=== PATIENT | female | born 1965 | race Caucasian/White ===

== ENCOUNTER 2025-09-27 17:48 | Emergency (ER) | payer MEDICAID ==
[~2025-09-27] VITALS: Ht 149.9 cm; Wt 55.0 kg
[2025-09-27 18:15] VITALS: TEMP 36.9; O2SAT 98
[2025-09-27 19:27] LABS: BASOPHILS % 1.0 % (0.0-2.0); EOSINOPHILS % 3.5 % (0.0-5.0); HEMATOCRIT. 36.6 % (36.0-48.0); HEMOGLOBIN. 12.2 g/dL (12.0-16.0); LYMPHOCYTES % 44.8 % (20.0-50.0); MEAN PLATELET VOLUME 8.0 fl (7.4-10.4); MONOCYTES % 7.8 % (2.0-8.0); NEUTROPHILS % 42.9 % (40.0-76.0); PLATELET 254 x1000/uL (130-400); RED BLOOD CELL COUNT 4.33 mill/uL (4.2-5.4); RED CELL DISTRIBUTION WIDTH 13.8 % (11.6-14.6)
[2025-09-27 19:43] LABS: CREATININE 0.9 mg/dL (0.6-1.0)
[2025-09-27 19:44] LABS: PROTEIN TOTAL 7.3 g/dL (6.0-8.3); UREA NITROGEN BLOOD 12 mg/dL (9-23)
[2025-09-27 19:45] LABS: ASPARTATE AMINOTRANSFERASE 14 IU/L (<34); TROPONIN I HIGH SENSITIVITY < 4 ng/L (3.0-34)
[2025-09-27 19:46] LABS: BILIRUBIN DIRECT < 0.1 mg/dL (<=3.0); BILIRUBIN TOTAL 0.3 mg/dL (0.1-1.0)
[2025-09-27] MEDS: FAMOTIDINE 20MG TABLET PO STA (20:02)
[2025-09-27] MEDS: MAGNESIUM/ALUMINUM HYDROXIDE/SIMETHICONE 30ML UDC PO ONE (20:02)
[2025-09-27] MEDS: ACETAMINOPHEN 325MG TABLET PO ONE (20:02)
[2025-09-27] MEDS ORDERED: VALA100044 MT (20:38)
[2025-09-27] MEDS ORDERED: DICL100G58 TP (20:38)
[2025-09-27 20:52] VITALS: BP 134/79; PULSE 78; RESP 14; O2SAT 100
[2025-09-27 21:07] LABS: CLARITY URINE CLEAR (CLEAR); COLOR URINE YELLOW (YELLOW); GLUCOSE URINE NEGATIVE (NEGATIVE); KETONES URINE NEGATIVE (NEGATIVE); LEUKOCYTE ESTERASE URINE 2+ (NEGATIVE); NITRITE URINE NEGATIVE (NEGATIVE); OCCULT BLOOD URINE NEGATIVE (NEGATIVE); PH URINE 6.0 (4.5-8.0); PROTEIN URINE NEGATIVE (NEGATIVE); SPECIFIC GRAVITY URINE 1.013 (1.005-1.030); UROBILINOGEN URINE 0.2 E.U./dL (0.2-1.0)
[2025-09-27 21:45] LABS: BACTERIA URINE 2+; SQUAMOUS EPITHELIAL CELL URINE 2+ /lpf (RARE/1+); WBC URINE 15-25 /hpf (0-2)
== END 2025-09-27 20:54 | disposition home or self-care (01) ==
LOC: ER 17:48
DX: B02.9 Zoster without complications (principal); C90.00 Multiple myeloma not having achieved remission; E11.9 Type 2 diabetes mellitus without complications; Z79.624 Long term (current) use of inhibitors of nucleotide synthesis; Z98.890 Other specified postprocedural states
CPT/HCPCS: 36415; 80048; 80076; 81003; 84484; 85025; 93005; 99284